=== PATIENT | female | born 1955 ===

== ENCOUNTER 2017-05-31 14:13 | Emergency (ER) | payer OTHER ==
[2017-05-31 14:34] VITALS: BP 170/82; PULSE 95; RESP 15; TEMP 98.3; O2SAT 99
[2017-05-31] MEDS ORDERED: Tdap Vaccine 0.5 ml Vial (10-64 yrs) IM ONE ×2 (14:52→15:28)
[2017-05-31] MEDS ORDERED: Naproxen 500 MG TAB PO STA (14:52)
--- NOTE | 2017-05-31 15:17 | ED PDOC ---
Upper Extremity Pain/Injury Time Seen by Provider: 05/31/17 14:32 Chief Complaint (Nursing): Upper Extremity Problem/Injury Chief Complaint (Provider): Finger Pain History Per: Patient History/Exam Limitations: no limitations Onset/Duration Of Symptoms: Days Current Symptoms Are (Timing): Still Present Quality: "Pain" Additional Complaint(s): 61 y/o female with a history of arthritis presents to the ED with pain of the left 4th finger due to infection after being diagnosed by her PCP on 05/07/17. She was prescribed Augmentin for 10 days on 05/07 which she completed with no improvement. Patient felt the infection was still present so she returned to her PCP on 05/18 and he performed an I&D and sent her home with triple antibiotic ointment. Blood work was completed on 05/18 with normal results per PCP. She was concerned infection returned due to persistent pain and contacted her PCP who prescribed Bactrim on 05/26, which she is currently taking. Patient states overall the pain has improved since the I&D was performed, but is still present which concerned her. Patient has no other complaints at this time besides localized pain to the left 4th digit. Patient denies any trauma to the digit. RN MATERNAL CHILD: Dr. Keegan Romero MD. Past Medical History Reviewed: Historical Data, Nursing Documentation, Vital Signs Vital Signs: Last Vital Signs Temp 98.3 F 05/31/17 14:30 Pulse 95 H 05/31/17 14:30 Resp 15 05/31/17 14:30 BP 170/82 H 05/31/17 14:30 Pulse Ox 99 05/31/17 14:30 - Medical History PMH: Anxiety, Arthritis, Gastritis - Surgical History Surgical History: No Surg Hx - Family History Family History: States: Unknown Family Hx - Social History Current smoker - smoking cessation education provided: No Ex-Smoker (has not smoked in the last 12 months): No Alcohol: None Drugs: Denies - Immunization History Hx Tetanus Toxoid Vaccination: Yes (Patient states she had it 20+ years ago) - Home Medications Home Medications: Ambulatory Orders Medication Instructions Recorded Meloxicam [Mobic] 15 mg PO DAILY #14 tab 05/31/17 - Allergies Allergies/Adverse Reactions: Allergies Allergy/AdvReac Type Severity Reaction Status Date / Time No Known Allergies Allergy Verified 05/31/17 14:30 Review of Systems ROS Statement: Except As Marked, All Systems Reviewed And Found Negative Musculoskeletal: Positive for: Other (Left 4th finger pain) Physical Exam - Reviewed Nursing Documentation Reviewed: Yes Vital Signs Reviewed: Yes - Physical Exam Appears: Positive for: Well, Non-toxic, No Acute Distress Head Exam: Positive for: ATRAUMATIC, NORMOCEPHALIC Skin: Positive for: Normal Color, Warm, Dry Eye Exam: Positive for: EOMI, PERRL Neck: Positive for: Painless ROM, Supple Cardiovascular/Chest: Positive for: Regular Rate, Rhythm Respiratory: Positive for: Normal Breath Sounds. Negative for: Decreased Breath Sounds, Accessory Muscle Use, Respiratory Distress Extremity: Positive for: Normal ROM (of all digits and bilateral wrists), Tenderness (of distal left 4th digit and DIP), Capillary Refill (<2 seconds), Swelling (mild to the DIP of the left 4th digit), Other (heberden nodes to DIP of all fingers, neurovascular intact). Negative for: Deformity (evidence of infection/cellulitis, erythema, fluctuance, paronychia, felon, warmth) Neurologic/Psych: Positive for: Alert, Oriented (x3), Gait (steady in ED) - ECG O2 Sat by Pulse Oximetry: 99 (RA) Pulse Ox Interpretation: Normal Medical Decision Making Medical Decision Making: Time: 14:30 Impression: Acute finger pain, consider arthritis Initial Plan: * Naproxen 500 mg PO * Tetanus 0.5 ml IM * X-Ray Left Hand 1545 XR reviewed: Diffuse arthritic changes throughout hand, no evidence of osteomyelitis, no fracture as read by Marlo VAZQUEZ Patient advised that official radiology read of XR is still pending and that we will call the patient if there is any discrepancy within 24 hours. 1600 On re-evaluation, patient reports improvement of symptoms. On exam, patient remains AAOx3, in no acute distress. On exam, neck is supple, lungs CTA, cardiac RRR, neuro exam shows no focal findings. Diagnostic results d/w the patient in great detail. Dx of finger pain, osteoarthritis d/w the patient. Based on history, exam and diagnostic results plan will be for discharge and outpatient follow up. Advised to follow up with primary care physician/hand specialist (Elinor) in 1-2 days without fail. Advised to take medication as prescribed and to continue current medications from PMD. Return to the emergency room at any time for any new or worsening symptoms. Patient states she fully agrees with and understands discharge instructions. States that she agrees with the plan and disposition. Verbalized and repeated discharge instructions and plan. I have given the patient opportunity to ask any additional questions. Scribe Attestation: Documented by Wagner Monroy acting as a scribe Lavern Diego PA-C. Scribe Attestation: All medical record entries made by the Scribe were at my direction and personally dictated by me. I have reviewed the chart and agree that the record accurately reflects my personal performance of the history, physical exam, medical decision making, and the department course for this patient. I have also personally directed, reviewed, and agree with the discharge instructions and disposition. Disposition - Clinical Impression Clinical Impression: Finger pain, left, Heberden nodes, Osteoarthritis of hand - Patient ED Disposition Is Patient to be Admitted: No Counseled Patient/Family Regarding: Studies Performed, Diagnosis, Need For Followup, Rx Given - Disposition Referrals: Radha Aldrich MD [Staff Provider] - Disposition: Routine/Home Disposition Time: 16:09 Condition: STABLE Prescriptions: Meloxicam [Mobic] 15 mg PO DAILY #14 tab Instructions: Osteoarthritis, Muscle and Bone Pain (DC) Forms: [employer] (Iraqi) Print Language: GRENADIAN - POA Present On Arrival: None
[2017-05-31] MEDS ORDERED: Naproxen 500 MG TAB PO ONE (15:28)
--- NOTE | 2017-05-31 16:49 | RAD ---
PROCEDURE: Left Hand Radiographs. HISTORY: swelling to left 4th digit COMPARISON: None. FINDINGS: BONES: Normal. No evidence of acute displaced fracture nor dislocation. The osseous structures appear intact with no obvious cortical destructive changes. JOINTS: Multi articular degenerative osteoarthritis (appears to be primary osteoarthritis) including osteoarthritis at the level of the greater multangular/1st metacarpal and mild triscaphe degenerative osteoarthritis. SOFT TISSUES: There appears to be mild localized soft tissue swelling at the level of the DIP joint 4th finger. OTHER FINDINGS: None. IMPRESSION: No acute fractures. Multi articular degenerative osteoarthritis as described. Mild localized soft tissue swelling at the level of the DIP joint 4th finger
== END 2017-05-31 16:19 | disposition home or self-care (01) ==
LOC: H.ER 14:13
DX: M79.642 Pain in left hand (principal); M19.042 Primary osteoarthritis, left hand; M15.1 Heberden's nodes (with arthropathy)